=== PATIENT | male | born 1960 | race Caucasian/White ===

== ENCOUNTER 2021-03-01 00:40 | Emergency (ER) | payer BC ==
[~2021-03-01] VITALS: Ht 182.9 cm; Wt 90.7 kg
[2021-03-01] MEDS ORDERED: ASPI81CH (01:02)
== END 2021-03-01 03:05 | disposition home or self-care (01) ==
LOC: ER 00:40
DX: R04.0 Epistaxis (principal); Z79.82 Long term (current) use of aspirin; F17.200 Nicotine dependence, unspecified, uncomplicated
CPT/HCPCS: 99283; A9270

== ENCOUNTER → 2021-07-13 | Outpatient (CLI) | payer BC ==
[~2021-07-13] MED LIST: ASPI81CH
[2021-07-13 12:14] LABS: Anion Gap 9 mmol/L (6-16); Blood Urea Nitrogen 16 mg/dL (8-24); Bun/Creatinine Ratio 15.7 (12.0-20.0); CO2, Blood 27 mmol/L (21-32); Calcium, Blood 9.3 mg/dL (8.5-10.1); Chloride, Blood 105 mmol/L (98-108); Creatinine, Blood 1.02 mg/dL (0.60-1.20); Glomerular Filtration Rate >60 (60-); Glucose, Blood 93 mg/dL (70-99); Potassium, Blood 4.6 mmol/L (3.5-5.5); Sodium, Blood 141 mmol/L (136-145)
== END | disposition home or self-care (01) ==
LOC: LAB SHORT 12:04
PROVIDERS: Chiropractor
DX: I10 Essential (primary) hypertension (principal)
CPT/HCPCS: 80048